=== PATIENT | female | born 1965 | race Caucasian/White ===

== ENCOUNTER 2021-09-11 11:41 | Outpatient (CLI) | payer OTHER | END 2021-09-11 11:50 | disposition home or self-care (01) | LOC: MRI 11:41 | PROVIDERS: ATTEND Orthopaedic Surgery | DX: M17.11 Unilateral primary osteoarthritis, right knee (principal); M25.461 Effusion, right knee; M25.561 Pain in right knee; M25.562 Pain in left knee | CPT/HCPCS: 73721 ==

== ENCOUNTER 2021-10-09 07:36 | Outpatient (CLI) | payer OTHER | END 2021-10-09 07:40 | disposition home or self-care (01) | LOC: NUCLEAR 07:36 | PROVIDERS: ATTEND Internal Medicine | DX: I10 Essential (primary) hypertension (principal); R00.2 Palpitations; I48.0 Paroxysmal atrial fibrillation ==

== ENCOUNTER 2021-10-09 08:48 | Outpatient (CLI) | payer OTHER | END 2021-10-09 09:03 | disposition home or self-care (01) | LOC: TOM 08:48 | PROVIDERS: ATTEND Internal Medicine | DX: I48.0 Paroxysmal atrial fibrillation (principal); I10 Essential (primary) hypertension; I26.09 Other pulmonary embolism with acute cor pulmonale ==